=== PATIENT | female | born 1955 | race Caucasian/White ===

== ENCOUNTER 2020-08-22 17:36 | Outpatient (REF) | payer BC, SELFPAY ==
--- NOTE | 2020-08-22 14:00 | PAPFT_PTH ---
PATIENT: Merced Krishna LOC: [facility]#:[id number] AGE/SX: 65/F ROOM: RE08/22/[address]: Zahraa Bolaños : 1955 BED: DIS: 08/22/2020 SPEC #: [id number] RECD: 08/23/20 12:50 STATUS: ERIN REQ #: [id number] LUIS ALFREDO: 08/22/20 14:[address]: Zahraa Bolaños DEPT: [facility] Cytology RECD BY: Arcelia Stauffer ENTERED: 08/23/20 12:51 SP TYPE: PAPFT OTHR DR: Karel Burgos Tissues: 1 - CX/ENDOCX FOR PAP SMEARS Procedures: PAP THIN PREP/[facility] Screening HPV DNA PROBE Comments: [id number]
[2020-08-22 21:33] LABS: Abs Immature Grans 0.01 10^3/uL (0.0-0.06); Absolute Basophil Count 0.04 10^3/uL (0.0-0.2); Absolute Lymphocyte Count 1.88 10^3/uL (1.2-3.4); Absolute Monocyte Count 0.31 10^3/uL (0.1-0.8); Absolute Neutrophil Count 4.11 10^3/uL (1.2-6.7); Basophils % 0.6; Eosinophils % 3.1; HCT 41.4 % (36.0-46.0); HGB 13.8 g/dL (11.2-15.7); Immature Grans % 0.2; Lymphocytes % 28.7; MCH 30.5 pg (27.0-33.0); MCHC 33.3 % (32.0-36.0); MCV 91.4 fL (80-95); MPV 11.1 fL (8.0-11.0); Monocytes % 4.7; Neutrophils % 62.7; Nucleated RBC 0 %; Platelet Count 233 10^3/uL (130-400); RBC 4.53 10^6/uL (3.93-5.22); RDW 12.8 % (11.7-14.6); RDW-SD 42.4 fL; WBC 6.55 10^3/uL (4.4-10.8)
[2020-08-22 21:50] LABS: Hemoglobin A1C 5.8 % (<5.7)
[2020-08-22 22:43] LABS: Calculated LDL 112 mg/dL (<100); Cholesterol 190 mg/dL (<200); HDL Cholesterol 45 mg/dL (40-60); Triglyceride 165 mg/dL (<150)
== END 2020-08-22 17:56 ==
LOC: NCHCN 17:36
PROVIDERS: PCP Family Medicine; Visit Provider Nurse Practitioner Community Health
DX: Z00.00 Encounter for general adult medical examination without abnormal findings (principal); Z13.1 Encounter for screening for diabetes mellitus; Z13.220 Encounter for screening for lipoid disorders; Z13.0 Encounter for screening for diseases of the blood and blood-forming organs and certain disorders involving the immune mechanism; Z12.4 Encounter for screening for malignant neoplasm of cervix; Z11.51 Encounter for screening for human papillomavirus (HPV)
CPT/HCPCS: 80061; 88142; 83036; 85025; 87624

== ENCOUNTER 2023-07-24 18:39 | Outpatient (REF) | payer BC, SELFPAY ==
[2023-07-24 21:18] LABS: HCT 42.5 % (36.0-46.0); HGB 14.4 g/dL (11.2-15.7); MCH 30.3 pg (27.0-33.0); MCHC 33.9 % (32.0-36.0); MCV 89 fL (80-95); MPV 10.7 fL (8.0-11.0); Platelet Count 207 10^3/uL (130-400); RBC 4.76 10^6/uL (3.93-5.22); RDW 12.9 % (11.7-14.6); RDW-SD 42.5 fL
[2023-07-24 21:28] LABS: ALT 83 U/L (14-59); AST 46 U/L (15-37); Albumin 3.9 g/dL (3.4-5.0); Alkaline Phosphatase 87 U/L (46-116); Anion Gap 6.4 mmol/L (3-11); BUN 14 mg/dL (7-18); Bilirubin, Total 0.4 mg/dL (0.2-1.0); CO2 27.6 mmol/L (21.0-32.0); CREATININE 0.8 mg/dL (0.55-1.02); Calcium 9.1 mg/dL (8.5-10.1); Calculated LDL 133 mg/dL (<100); Chloride 103 mmol/L (98-107); Cholesterol 212 mg/dL (<200); Estimated GFR 81.21 (mL/min/1.73m2); Glucose 111 mg/dL (74-106); HDL Cholesterol 66 mg/dL (40-60); Potassium 4.5 mmol/L (3.5-5.1); Sodium 137 mmol/L (136-145); Total Protein 7.3 g/dL (6.4-8.2); Triglyceride 69 mg/dL (<150)
[2023-07-24 21:52] LABS: Hemoglobin A1C 6.4 % (<5.7)
[2023-07-24 22:09] LABS: COMMENT (LAB VIEW ONLY) 177.26 mg/dL; Microalb ug/mg Crea 5.8 ug/mg Cr
[2023-07-26 11:20] LABS: HIV-1/2 Ag & Ab Screen Negative (Negative)
[2023-07-26 11:45] LABS: Hepatitis C Ab w Rflx HCV PCR Negative (Negative)
== END 2023-07-24 18:40 | disposition home or self-care (01) ==
LOC: NCHCN 18:39
PROVIDERS: PCP Family Medicine; Visit Provider Nurse Practitioner Family
DX: E11.9 Type 2 diabetes mellitus without complications (principal); Z11.4 Encounter for screening for human immunodeficiency virus [HIV]; Z11.59 Encounter for screening for other viral diseases; Z79.899 Other long term (current) drug therapy; Z13.220 Encounter for screening for lipoid disorders; R79.89 Other specified abnormal findings of blood chemistry
CPT/HCPCS: 80053; 80061; 85027; 86803; 87389; 82043; 82570; 83036

== ENCOUNTER 2023-08-22 17:32 | Outpatient (REF) | payer BC, SELFPAY ==
[2023-08-22 21:04] LABS: Anion Gap 9.9 mmol/L (3-11); BUN 12 mg/dL (7-18); CO2 25.1 mmol/L (21.0-32.0); CREATININE 0.7 mg/dL (0.55-1.02); Calcium 9.7 mg/dL (8.5-10.1); Chloride 103 mmol/L (98-107); Estimated GFR 95.32 (mL/min/1.73m2); Glucose 91 mg/dL (74-106); Potassium 4.2 mmol/L (3.5-5.1); Sodium 138 mmol/L (136-145)
== END 2023-08-22 17:33 | disposition home or self-care (01) ==
LOC: NCHCN 17:32
PROVIDERS: PCP Family Medicine; Visit Provider Nurse Practitioner Family
DX: E11.9 Type 2 diabetes mellitus without complications (principal)
CPT/HCPCS: 80048